=== PATIENT | female | born 1960 | race Two or more races ===

== ENCOUNTER 2023-10-17 00:50 | Emergency (ER) | payer BC ==
[~2023-10-17] VITALS: Ht 181.6 cm; Wt 91.6 kg
[2023-10-17] MEDS ORDERED: PHENAGIL TABLE1 EACH PO (03:52)
[2023-10-17] MEDS ORDERED: ZYNCOF 20-400120 ML PO (03:52)
== END 2023-10-17 04:55 ==
LOC: ER 00:50
DX: U07.1 COVID-19 (principal); Z91.013 Allergy to seafood; Z88.8 Allergy status to other drugs, medicaments and biological substances; Z91.018 Allergy to other foods